=== PATIENT | male | born 1985 | race Caucasian/White ===

== ENCOUNTER 2019-07-15 09:04 | Emergency (ER) | payer BC ==
[~2019-07-15] VITALS: Ht 185.4 cm; Wt 95.4 kg
[2019-07-15] MEDS ORDERED: IV NORMAL SALINE 1000ML BAG 1,000 ML IV SCH (09:21)
--- NOTE | 2019-07-15 09:27 | PHYS DOC ---
Past Medical History Past Medical History: No Pertinent History Past Surgical History: Other Additional Past Surgical Histo: wisdom teeth extraction Alcohol Use: Occasionally Drug Use: None Adult General Chief Complaint Chief Complaint: ABDOMINAL PAIN HPI HPI Patient is a healthy 34-year-old male who presents to the emergency department for evaluation. He states that yesterday he began having some generalized abdominal pain in his periumbilical area, which over the past 24 hours has gradually been worsening and localized to his right lower quadrant. He has had no nausea, vomiting, or diarrhea, fevers or chills. He denies any genital pain or urinary symptoms. He went to an urgent care and was referred to the emergency department for evaluation. Movement and palpation of his affected area worsens his pain. There are no alleviating factors to his symptoms. Review of Systems Review of Systems Constitutional: Denies fever or chills [] Eyes: Denies change in visual acuity, redness, or eye pain [] HENT: Denies nasal congestion or sore throat [] Respiratory: Denies cough or shortness of breath [] Cardiovascular: The patient denies any shortness of breath, chest pain, palpitations, or orthopnea [] GI: No additional information not addressed in HPI [] : Denies dysuria or hematuria [] Musculoskeletal: Denies back pain or joint pain [] Integument: Denies rash or skin lesions [] Neurologic: Denies headache, focal weakness or sensory changes [] Endocrine: Denies polyuria or polydipsia [] All other systems were reviewed and found to be within normal limits, except as documented in this note. Current Medications Current Medications Current Medications Medications (Trade) Dose Ordered Sig/Trina Start Time Stop Time Status Last Admin Dose Admin Dextrose/Lactated Ringer's 1,000 ml @ 125 mls/hr 1X ONCE 07/15/19 11:00 07/15/19 18:59 07/15/19 12:14 125 MLS/HR Fentanyl Citrate (Fentanyl 2ml Vial) 50 mcg PRN Q1HR PRN 07/15/19 11:00 07/16/19 10:59 07/15/19 12:55 50 MCG Hydromorphone HCl (Dilaudid) 1 mg 1X ONCE 07/15/19 12:15 07/15/19 12:16 DC 07/15/19 12:10 1 MG Info (CONTRAST GIVEN -- Rx MONITORING) 1 each PRN DAILY PRN 07/15/19 09:45 07/17/19 09:44 Iohexol (Omnipaque 300 Mg/ml) 75 ml 1X ONCE 07/15/19 09:45 07/15/19 09:46 DC 07/15/19 09:45 75 ML Morphine Sulfate (Morphine Sulfate) 4 mg PRN Q15MIN PRN 07/15/19 09:30 07/16/19 09:29 07/15/19 10:08 4 MG Ondansetron HCl (Zofran) 4 mg 1X ONCE 07/15/19 10:00 07/15/19 10:01 DC 07/15/19 09:31 4 MG Piperacillin Sod/ Tazobactam Sod 4.5 gm/Sodium Chloride 100 ml @ 200 mls/hr 1X ONCE 07/15/19 11:15 07/15/19 11:44 DC 07/15/19 11:27 200 MLS/HR Sodium Chloride 1,000 ml @ 1,000 mls/hr Q1H 07/15/19 09:21 07/15/19 10:20 DC 07/15/19 09:30 1,000 MLS/HR Allergies Allergies Allergies Coded Allergies Type Severity Reaction Last Updated Verified No Known Drug Allergies 07/15/19 No Physical Exam Physical Exam PHYSICAL EXAM: CONSTITUTIONAL: Well developed, well nourished HEAD: normocephalic, atraumatic EENT: PERRL, EOMI. Conjunctivae normal color, sclerae non-icteric; moist mucous membranes. NECK: Supple, non-tender; no meningismus. LUNGS: Lungs CTA, breathing even and unlabored. Normal air movement. HEART: Regular rate and rhythm, no murmur CHEST: No deformity; non-tender ABDOMEN: The abdomen is soft, there is significant focal right lower quadrant tenderness to palpation, with more mild diffuse tenderness to palpation to the remainder of the abdomen, with some involuntary guarding and rebound tenderness present, bowel sounds are present, no masses or bruits. EXTREM: Normal ROM; no deformity, no calf tenderness. Normal pulses palpable in all extremities. There is no pedal edema. SKIN: No rash; no diaphoresis NEURO: Alert; normal speech and cognition; CN's grossly intact; strength grossly intact without focal deficit. BACK: No CVA TTP. Current Patient Data Vital Signs Vital Signs Date Time Temp Pulse Resp B/P (MAP) Pulse Ox O2 Delivery O2 Flow Rate FiO2 07/15/19 12:58 99.2 77 16 143/66 (91) 93 Room Air 99.2 Lab Values Laboratory Tests Test 07/15/19 09:15 07/15/19 09:17 Urine Collection Type Unknown Urine Color Yellow Urine Clarity Clear Urine pH 7.5 Urine Specific Wheeler 1.010 Urine Protein Negative mg/dL (NEG-TRACE) Urine Glucose (UA) Negative mg/dL (NEG) Urine Ketones (Stick) Negative mg/dL (NEG) Urine Blood Negative (NEG) Urine Nitrite Negative (NEG) Urine Bilirubin Negative (NEG) Urine Urobilinogen Dipstick 0.2 mg/dL (0.2 mg/dL) Urine Leukocyte Esterase Negative (NEG) Urine RBC 0 /HPF (0-2) Urine WBC 0 /HPF (0-4) Urine Squamous Epithelial Cells Occ /LPF Urine Bacteria 0 /HPF (0-FEW) White Blood Count 11.3 x10^3/uL (4.0-11.0) H Red Blood Count 5.09 x10^6/uL (4.30-5.70) Hemoglobin 15.4 g/dL (13.0-17.5) Hematocrit 45.2 % (39.0-53.0) Mean Corpuscular Volume 89 fL (79-100) Mean Corpuscular Hemoglobin 30 pg (25-35) Mean Corpuscular Hemoglobin Concent 34 g/dL (31-37) Red Cell Distribution Width 12.9 % (11.5-14.5) Platelet Count 247 x10^3/uL (140-400) Neutrophils (%) (Auto) 74 % (31-73) H Lymphocytes (%) (Auto) 13 % (24-48) L Monocytes (%) (Auto) 13 % (0-9) H Eosinophils (%) (Auto) 0 % (0-3) Basophils (%) (Auto) 0 % (0-3) Neutrophils # (Auto) 8.4 x10^3/uL (1.8-7.7) H Lymphocytes # (Auto) 1.5 x10^3/uL (1.0-4.8) Monocytes # (Auto) 1.4 x10^3/uL (0.0-1.1) H Eosinophils # (Auto) 0.0 x10^3/uL (0.0-0.7) Basophils # (Auto) 0.0 x10^3/uL (0.0-0.2) Sodium Level 137 mmol/L (136-145) Potassium Level 3.7 mmol/L (3.5-5.1) Chloride Level 100 mmol/L (98-107) Carbon Dioxide Level 29 mmol/L (21-32) Anion Gap 8 (6-14) Blood Urea Nitrogen 11 mg/dL (8-26) Creatinine 1.0 mg/dL (0.7-1.3) Estimated GFR (Cockcroft-Gault) 85.0 BUN/Creatinine Ratio 11 (6-20) Glucose Level 102 mg/dL (70-99) H Calcium Level 9.3 mg/dL (8.5-10.1) Total Bilirubin 1.7 mg/dL (0.2-1.0) H Aspartate Amino Transferase (AST) 27 U/L (15-37) Alanine Aminotransferase (ALT) 32 U/L (16-63) Alkaline Phosphatase 64 U/L (46-116) Total Protein 7.9 g/dL (6.4-8.2) Albumin 4.3 g/dL (3.4-5.0) Albumin/Globulin Ratio 1.2 (1.0-1.7) Lipase 54 U/L (73-393) L Laboratory Tests 07/15/19 09:17 Laboratory Tests 07/15/19 09:17 EKG EKG [] Radiology/Procedures Radiology/Procedures PROCEDURE: CT ABD PELV W/ IV CONTRST ONLY Study: CT abdomen/pelvis with intravenous contrast Indication: Sudden onset right lower quadrant pain. Comparison: None. Technique: Helical CT imaging performed of the abdomen and pelvis after the intravenous administration of 75 cc Omnipaque 300 contrast. Sagittal and coronal reformats were obtained. One or more of the following individualized dose reduction techniques were utilized for this examination: 1. Automated exposure control 2. Adjustment of the mA and/or kV according to patient size 3. Use of iterative reconstruction technique. Findings: Bibasilar atelectasis. Unremarkable liver, gallbladder and pancreas. Mildly prominent spleen measuring approximately 14.7 cm in AP dimension. Normal adrenal glands. Tiny nonobstructing intrarenal stone at the upper pole of the left kidney, image 39 series 4. Extrarenal pelvis on the right and left. No hydroureter. Mild to moderate urinary bladder distention. Diverticulitis involving a long segment of the proximal sigmoid colon with inflammatory changes and wall thickening extending to the junction of the descending colon with the sigmoid. The diverticulitis is complicated by perforation and abscess formation with scattered foci of pneumoperitoneum seen throughout the abdomen and pelvis. The air and fluid containing collection along the undersurface of the sigmoid colon measures approximately 4.7 cm AP by 3.6 cm craniocaudal by 3.2 cm transverse. Prominent amount of well-formed stool within the proximal aspect of the colon. The appendix is within normal limits. Nonobstructed small bowel. Along the right lateral wall of the infrarenal aorta, crescentic structures most compatible with a vein interposed between the IVC and aorta. Mildly tortuous abdominal aorta. Apparent irregularity along portions of the abdominal aorta is related to motion artifact such as on image 50 series 2. Small amount of free fluid in the setting of diverticulitis as well as surrounding pelvic fatty stranding. Bone islands seen at the proximal femurs. Impression: 1. Sigmoid diverticulitis complicated by perforation and abscess formation. Relatively small volume pneumoperitoneum seen throughout the abdomen and pelvis. The abscess contains fluid and air and is located along the undersurface of the mid sigmoid colon with the collection measuring approximately 4.7 cm AP by 3.6 cm craniocaudal by 3.2 cm transverse. 2. Mildly enlarged spleen measuring just under 15 cm in maximum dimension. 3. Tiny nonobstructing intrarenal stone at the upper pole of the left kidney. [] Course & Med Decision Making Course & Med Decision Making Pertinent Labs and Imaging studies reviewed. (See chart for details) [] 10:48 AM: Patient's condition remained stable. Discussed CT findings with the patient. General surgery and hospitalist have been paged, the patient will be admitted. 11:50 AM: The patient, after discussion with his , would like to be transferred to a different facility. He would like to be transferred to [facility] on the [place], but declines taking an ambulance, and I do not feel comfortable sending him via POV via transfer. He is agreeable to sign out AGAINST MEDICAL ADVICE. He expressed understanding of the risks involved, including worsening of his condition, deterioration, sepsis development or . This decision was made after extensive consultation with the patient about treatment options, transfer options, and risk. I will call to transfer center at [facility], to give report to the ER and I will send the patient with copies of his labs and CT to the outside facility. His dose of Zosyn will be completed prior to his leaving. 12:00 PM: The patient changed his mind again, and is now agreeable to EMS transfer. I spoke with Dr. Almendarez, transfer physician at [facility] on the [place], who accepted the patient in transfer. Dr Borrero, will be the acceptign p hyician, who will see patient at [facility]. Dragon Disclaimer Dragon Disclaimer This electronic medical record was generated, in whole or in part, using a voice recognition dictation system. Departure Departure Impression: Primary Impression: Diverticulitis of intestine with perforation and abscess Disposition: 02 TRANSFER [facility] Condition: STABLE RAYO BAZZI MD Jul 15, 2019 09:27
[2019-07-15] MEDS: MORPHINE SULFATE 4 MG/ML VIAL. IV/SQ PRN ×3 (09:34→13:56)
[2019-07-15 09:35] LABS: BASO % 0 % (0-3); EOS % 0 % (0-3); HEMATOCRIT 45.2 % (39.0-53.0); HEMOGLOBIN 15.4 g/dL (13.0-17.5); LYMPH # 1.5 x10^3/uL (1.0-4.8); LYMPH % 13 % (24-48); MEAN CORPUSCULAR HEMOGLOBIN 30 pg (25-35); MEAN CORPUSCULAR HGB CONC 34 g/dL (31-37); MEAN CORPUSCULAR VOLUME 89 fL (79-100); MONO # 1.4 x10^3/uL (0.0-1.1); MONO % 13 % (0-9); NEUT # 8.4 x10^3/uL (1.8-7.7); NEUT % 74 % (31-73); PLATELET COUNT 247 x10^3/uL (140-400); RED BLOOD COUNT 5.09 x10^6/uL (4.30-5.70); RED CELL DISTRIBUTION WIDTH 12.9 % (11.5-14.5); WHITE BLOOD COUNT 11.3 x10^3/uL (4.0-11.0)
[2019-07-15 09:36] LABS: BILIRUBIN,URINE NEGATIVE (NEG); CLARITY,URINE CLEAR; COLOR,URINE YELLOW; NITRITE,URINE NEGATIVE (NEG); PH,URINE 7.5; PROTEIN,URINE NEGATIVE (NEG-TRACE); UROBILINOGEN,URINE 0.2 mg/dL (0.2 mg/dL)
[2019-07-15] MEDS ORDERED: IOHEXOL 300 MG/ML 100ML VIAL. IV ONE (09:45)
[2019-07-15] MEDS ORDERED: CONTRAST GIVEN. MC PRN (09:45)
[2019-07-15] MEDS ORDERED: ONDANSETRON PF 4 MG/2 ML VIAL. IV ONE (10:00)
[2019-07-15 10:01] LABS: CALCIUM 9.3 mg/dL (8.5-10.1); POTASSIUM 3.7 mmol/L (3.5-5.1)
[2019-07-15 10:06] LABS: BACTERIA,URINE 0 /HPF (0-FEW); RBC,URINE 0 /HPF (0-2); SQUAMOUS EPITHELIAL CELL,UR OCC /LPF; WBC,URINE 0 /HPF (0-4)
[2019-07-15 10:07] LABS: ALBUMIN 4.3 g/dL (3.4-5.0); ALBUMIN/GLOBULIN RATIO 1.2 (1.0-1.7); TOTAL BILIRUBIN 1.7 mg/dL (0.2-1.0); TOTAL PROTEIN 7.9 g/dL (6.4-8.2)
[2019-07-15] MEDS ORDERED: fentaNYL PF VIAL 100 MCG/2 ML VIAL ONE (10:40)
--- NOTE | 2019-07-15 10:52 | RAD ---
Study: CT abdomen/pelvis with intravenous contrast Indication: Sudden onset right lower quadrant pain. Comparison: None. Technique: Helical CT imaging performed of the abdomen and pelvis after the intravenous administration of 75 cc Omnipaque 300 contrast. Sagittal and coronal reformats were obtained. One or more of the following individualized dose reduction techniques were utilized for this examination: 1. Automated exposure control 2. Adjustment of the mA and/or kV according to patient size 3. Use of iterative reconstruction technique. Findings: Bibasilar atelectasis. Unremarkable liver, gallbladder and pancreas. Mildly prominent spleen measuring approximately 14.7 cm in AP dimension. Normal adrenal glands. Tiny nonobstructing intrarenal stone at the upper pole of the left kidney, image 39 series 4. Extrarenal pelvis on the right and left. No hydroureter. Mild to moderate urinary bladder distention. Diverticulitis involving a long segment of the proximal sigmoid colon with inflammatory changes and wall thickening extending to the junction of the descending colon with the sigmoid. The diverticulitis is complicated by perforation and abscess formation with scattered foci of pneumoperitoneum seen throughout the abdomen and pelvis. The air and fluid containing collection along the undersurface of the sigmoid colon measures approximately 4.7 cm AP by 3.6 cm craniocaudal by 3.2 cm transverse. Prominent amount of well-formed stool within the proximal aspect of the colon. The appendix is within normal limits. Nonobstructed small bowel. Along the right lateral wall of the infrarenal aorta, crescentic structures most compatible with a vein interposed between the IVC and aorta. Mildly tortuous abdominal aorta. Apparent irregularity along portions of the abdominal aorta is related to motion artifact such as on image 50 series 2. Small amount of free fluid in the setting of diverticulitis as well as surrounding pelvic fatty stranding. Bone islands seen at the proximal femurs. Impression: 1. Sigmoid diverticulitis complicated by perforation and abscess formation. Relatively small volume pneumoperitoneum seen throughout the abdomen and pelvis. The abscess contains fluid and air and is located along the undersurface of the mid sigmoid colon with the collection measuring approximately 4.7 cm AP by 3.6 cm craniocaudal by 3.2 cm transverse. 2. Mildly enlarged spleen measuring just under 15 cm in maximum dimension. 3. Tiny nonobstructing intrarenal stone at the upper pole of the left kidney. FOR INTERNAL CODING PURPOSES RESULT CODE: (C) The findings were discussed with Dr. Guerrero person on 07/15/2019 at 1042 hours Electronically signed by: TYRONE AMADOR MD (07/15/2019 10:49 AM) [facility]
[2019-07-15] MEDS ORDERED: fentaNYL PF VIAL 100 MCG/2 ML VIAL IV PRN (11:00)
[2019-07-15] MEDS ORDERED: IV DEXTROSE 5%-LACT RINGERS 1,000 ML IV ONE (11:00)
[2019-07-15] MEDS ORDERED: fentaNYL PF VIAL 100 MCG/2 ML VIAL IVP ONE (11:15)
[2019-07-15] MEDS ORDERED: PIPERACILLIN/TAZOBACTAM 4.5 GM in IV NORMAL SALINE 100ML 100 ML IV ONE (11:15)
[2019-07-15] MEDS ORDERED: HYDROmorphone 2 MG/ML VIAL IV ONE (12:15)
[2019-07-15 13:58] VITALS: BP 128/68
== END 2019-07-15 14:05 | disposition short-term general hospital (02) ==
LOC: ER 09:04
DX: K57.20 Diverticulitis of large intestine with perforation and abscess without bleeding (principal)
CPT/HCPCS: 36415; 74177; 80053; 81001; 83690; 85025; 96365; 96375; 96376; 99285; J1170; J2270; J2405; J2543; J3010; J7030; Q9967